=== PATIENT | female | born 1995 | race Caucasian/White ===

== ENCOUNTER 2017-02-05 08:32 | Emergency (ER) | payer OTHER ==
[2017-02-05 08:42] VITALS: BP 131/70
--- NOTE | 2017-02-05 09:15 | UC ---
Abe Bradley Salem, [facility] 02[facility]05[facility]17 at 0908 . Respiratory Complaint HPI - HPI Summary HPI Summary: HPI: Patient is a 21 y/o female who presents to the with swelling and pain of the left eye for 6 days. She reports a cough for 6 days that was only productive this morning. She denies ear pain, abd pain, back pain, V/N/D, wheezing, or CP, but reports pain over the sinuses, left greater than right, a sore throat that has improved since onset, and SOB with cough. She also reports a diagnosis of conjunctivitis 4 days ago from [place] and a UTI diagnosis 4 days ago. She is currently taking Nitrofurantoin for the UTI, but will finish her course today. She reports she has not had a tonsillectomy. note: VSS, afebrile, pulse 120, O2 Sat: 100%, 6/10 sinus discomfort, occasional EtOH, nonsmoker. Visit hx noncontributory to current complaint. Nurses note: Sinus congestion, cough, left eye swelling and pressure. - History of Current Complaint Stated Complaint: SINUS ISSUE Hx Obtained From: Patient Hx Last Menstrual Period: 01/28/17 Onset/Duration: Gradual Onset, Lasting Days Severity Initially: Moderate Severity Currently: Moderate Character: Cough: Productive - since this morning. Aggravating Factors: Nothing Alleviating Factors: Nothing Associated Signs And Symptoms: Positive: Dyspnea - with cough.. Negative: Wheezing - Allergies/Home Medications Allergies/Adverse Reactions: Allergies Allergy/AdvReac Type Severity Reaction Status Date / Time No Known Allergies Allergy Verified 02/10/15 20:39 PMH/Surg Hx/FS Hx/Imm Hx Endocrine History Of: Denies: Diabetes, Thyroid Disease Cardiovascular History Of: Denies: Cardiac Disorders, Hypertension Respiratory History Of: Denies: COPD, Asthma GI/ History Of: Denies: Ulcer - Surgical History Surgical History: None - Family History Known Family History: Negative: Cardiac Disease - Social History Alcohol Use: Occasionally Substance Use Type: None Smoking Status (MU): Never Smoked Tobacco - Immunization History Most Recent Influenza Vaccination: 08/2017 Review of Systems Constitutional: Negative Eyes: Other - Pain over the sinuses. ENT: Sore Throat - Improved since onset. Respiratory: Shortness Of Breath - with cough., Cough - productive. Cardiovascular: Negative Gastrointestinal: Negative All Other Systems Reviewed And Are Negative: Yes Physical Exam Triage Information Reviewed: Yes Appearance: Well-Appearing, No Pain Distress, Well-Nourished Vital Signs: Initial Vital Signs Temp 97.5 F 02/05/17 08:34 Pulse 120 02/05/17 08:34 Resp 20 02/05/17 08:34 BP 131/70 02/05/17 08:34 Pulse Ox 100 02/05/17 08:34 Vital Signs Reviewed: Yes Eye Exam: Other - no teodoro-orbital redness or proptosis. Eyes: Positive: Conjunctiva Clear ENT: Positive: Hearing grossly normal, Pharynx normal, TMs normal, Other: - LEFT EYE SCLERAL INJECTIONS. BULBAR CONJUNCTIVA IS INJECTED. MILD SINUS DISCOMFORT WITH PALPATION FRONTAL AND MAXILLARY.. Negative: Muffled/hoarse voice Neck: Positive: Supple, Nontender, No Lymphadenopathy Respiratory: Positive: Chest non-tender, Lungs clear, Normal breath sounds, No respiratory distress Cardiovascular: Positive: RRR, No Murmur Abdomen Description: Positive: Nontender, No Organomegaly, Soft Bowel Sounds: Positive: Present Musculoskeletal: Positive: Strength Intact, Other: - MCKIN[place]. Neurological: Positive: Alert Psychological: Positive: Age Appropriate Behavior UC Diagnostic Evaluation - Laboratory O2 Sat by Pulse Oximetry: 100 Respiratory Course/Dx - Course Course Of Treatment: Differential diagnosis: URI vs PNA vs Sinusitis. - Differential Dx/Diagnosis Differential Diagnosis/HQI/PQRI: Bronchitis, Lower Resp Infection, Sinusitis Provider Diagnoses: Sinusitis, maxillary. Left eye conjunctivitis. Discharge - Discharge Plan Condition: Stable Disposition: HOME Prescriptions: Amoxicillin (*) [Amoxicillin 875 MG (*)] 875 mg PO BID #14 tab MDD 2 Erythromycin (Ophth) [Ilotycin] 5 mg OPHTHALMIC QID #1 oin MDD 4 Patient Education Materials: Sinusitis (ED), Conjunctivitis (ED) Forms: *Gen. Provider Communication Additional Instructions: WE DISCUSSED: DX: SINUSITIS; CONJUNCTIVITIS 1. USE MEDICATION FOUR TIMES A DAY IN THE LEFT EYE; AT NIGHT BEFORE SLEEP IN RIGHT EYE; USE FOR 5-7 DAYS. 2. AMOXICILLIN, ONE PILL TWICE A DAY FOR 7 DAYS. 3. ALSO: LET'S OF WARM FLUIDS, TEA AND HONEY; STEAM. SEE BELOW INSTRUCTIONS AND INFORMATION. COUGH, CONGESTION of CHEST, SINUSES OR EARS: The most important goal is to liquefy all the phlegm and get it out of your head and chest. Any illness causing cough, congestion, sore throat or sinus discomfort can be helped by doing the following: STAND UNDER SHOWER STREAM TO LOOSEN SECRETIONS. STAY AWAY FROM ANY SMOKE OR IRRITANTS. WHAT ELSE CAN HELP RELIEVE YOUR SYMPTOMS: GENERAL TYPES OF MEDICINE THAT MAY HELP DECONGESTANTS: helps relieve stuffiness and clears sinuses. Pseudoephedrine ( Sudafed or generic) is effective but you need to ask the pharmacist for it because it may be kept behind the counter. ANTIHISTAMINES: are NOT helpful in many colds and flus because they can worsen sore throat, dry eyes and mouth and cause drowsiness. Examples are diphenhydramine, doxylamine and chlorpheniramine. They can help dry you out if you are having profuse, clear drainage from the nose. EXPECTORANTS: helps thin mucous in the nose and chest, making it easier to clear the fluid out. Expectorants are in most combination cough/cold remedies and should be taken with plenty of water. Guaifenesin is the most common expectorant and it comes in pill or liquid form. Mucinex is an extended release form of guaifenesin. COUGH SUPPRESANT: reduces the body's cough reflex. Dextromethorphan is in over the counter products, but sometimes narcotics such as codeine or hydrocodone are used to suppress cough. SPECIFIC MEDICATIONS: The most important goal is to liquefy all the phlegm and get it out of your head and chest: The following medicines (in prescription form or you can buy them without prescription) may help: To help with cough: DEXTROMETHORPHAN (Vicks, Robitussin, Nyquil and other brands) To help break up phlegm: GUAIFENESIN (Mucinex, Robitussin, other brands) To help clear congestion: PSEUDOEPHEDRINE (Sudafed, Dimetapp, other brands) TRY TO CLEAR NOSE: AFRIN NASAL SPRAY: 2-3 SPRAYS PER NOSTRIL, TWICE A DAY FOR TWO DAYS ONLY. USEFUL WAYS TO FEEL BETTER WITHOUT MEDICATIONS: STAND UNDER SHOWER STREAM TO LOOSEN SECRETIONS. USE A VAPORIZOR. STAY AWAY FROM ANY SMOKE OR IRRITANTS. USE SALINE NASAL SPRAY TO KEEP FLOW OF MUCOUS FROM NOSTRILS AND SINUSES. CONSIDER USING NETI POT TO HELP WITH ALLERGIES AND CONGESTION IN THE NOSE. USE THIS THREE TIMES A WEEK. YOU CAN GET THIS AT [facility] IN [place] OR VARIOUS DRUGSTORES. DRINK LOTS OF WARM FLUIDS USEFUL HOME REMEDIES: WARM WATER GARGLES, WITH TSP OF SALT PER 8 OUNCES OF WATER, GARGLE FOR A FEW SECONDS AND SPIT OUT; GARGLE AND SPIT OUT; EVERY THREE HOURS. AND/OR: WARM WATER OR TEA, HONEY AND LEMON; 2-3 CUPS A DAY. FOR SORE THROAT: KEEP THROAT MOIST WITH LOZENGES; TEA AND HONEY. USE WARM WATER GARGLES 3-4 TIMES A DAY. FOLLOW UP: RE-CHECK IN 1O DAYS, NEEDED, IF YOU ARE NOT IMPROVING. RETURN HERE OR SEE YOUR PHYSICIAN. RE-CHECK SOONER IF INCREASED PAIN OR TEMPERATURE. The documentation as recorded by the Abe tam Salem accurately reflects the service I personally performed and the decisions made by me, Efe Garber MD.
== END 2017-02-05 09:10 | disposition home or self-care (01) ==
LOC: UCEAST 08:32
DX: J32.0 Chronic maxillary sinusitis (principal); H10.32 Unspecified acute conjunctivitis, left eye
CPT/HCPCS: 99212; G0463